=== PATIENT | male | born 1995 | race Caucasian/White ===

== ENCOUNTER 2017-10-18 15:00 | Emergency (ER) | payer OTHER ==
[~2017-10-18] VITALS: Ht 198.1 cm; Wt 127.0 kg
[~2017-10-18 15:00] MED LIST: ALBU90OI INH; ALEVE; CEPH500 PO; CIPRSO OD; CODACE30 PO; CODGUAEL PO; Cipro500 MG PO; DOXY100 PO; FLORIDE; Flomax0.4 MG PO; GUAI200 PO; IBUP600 PO; NAPR375 PO; Norco 5-325 Ta1 EACH PO; ONDA4ODT MM; PRED20 PO; Percocet 5-3251 EACH PO; Prednisone20 MG PO; RXCODGUASY PO; Triamcinolone A15 GM TOP
[2017-10-18] MEDS ORDERED: Naprosyn500 MG PO (15:41)
[2017-10-18] MEDS ORDERED: Amoxicillin500 MG PO (15:41)
[2017-10-18] MEDS ORDERED: NYST237S MT (15:41)
== END 2017-10-18 15:45 | disposition home or self-care (01) ==
LOC: ER 15:00
DX: K02.9 Dental caries, unspecified (principal); K03.81 Cracked tooth; Z79.1 Long term (current) use of non-steroidal anti-inflammatories (NSAID); Z79.2 Long term (current) use of antibiotics
CPT/HCPCS: 99283

== ENCOUNTER 2017-11-12 17:51 | Emergency (ER) | payer OTHER ==
[~2017-11-12] VITALS: Ht 198.1 cm; Wt 263.1 kg
[~2017-11-12 17:51] MED LIST changes: +Amoxicillin500 MG PO; +NYST237S MT; +Naprosyn500 MG PO
[2017-11-12] MEDS ORDERED: Amoxicillin500 MG PO (18:17)
== END 2017-11-12 18:22 | disposition home or self-care (01) ==
LOC: ER 17:51
DX: K08.89 Other specified disorders of teeth and supporting structures (principal); K03.81 Cracked tooth
CPT/HCPCS: 99282

== ENCOUNTER → 2018-08-16 | Outpatient (CLI) | payer OTHER ==
[~2018-08-16] MED LIST changes: +Pepcid40 MG PO; +Zofran8 MG PO
[2018-08-16 19:52] LABS: BASOPHILS ABSOLUTE AUTO 0.05 K/mm3 (0.00-0.23); BASOPHILS PERCENT AUTO 1 % (0-2); EOSINOPHILS PERCENT AUTO 1 % (0-6); Hematocrit 42.3 % (37.0-53.0); Hemoglobin 14.1 g/dL (13.5-17.5); IMMATURE GRAN ABSOLUTE AUTO 0.03 K/mm3 (0.00-0.10); IMMATURE GRAN PERCENT AUTO 0 % (0-1); LYMPHOCYTES ABSOLUTE AUTO 1.91 K/mm3 (0.84-5.20); LYMPHOCYTES PERCENT AUTO 20 % (21-46); MONOCYTES ABSOLUTE AUTO 0.55 K/mm3 (0.16-1.47); MONOCYTES PERCENT AUTO 6 % (4-13); Mean Corpuscular HGB 29.4 pg (26.0-34.0); Mean Corpuscular HGB Conc 33.3 g/dL (31.5-36.5); Mean Corpuscular Volume 88 fL (80-100); Mean Platelet Volume 10.4 fL (9.1-12.4); NEUTROPHILS ABSOLUTE AUTO 7.01 K/mm3 (1.96-9.15); NEUTROPHILS PERCENT AUTO 73 % (41-73); Platelet Count 274 K/mm3 (150-400); RDW Coefficient Variation 12.1 % (11.7-14.2); RDW Standard Deviation 39.4 fL (35.1-46.3); Red Blood Cell Count 4.79 M/mm3 (4.30-5.90); White Blood Cell Count 9.65 K/mm3 (4.00-11.30)
[2018-08-16 20:07] LABS: Alanine Aminotransfer (ALT/SGP 70 U/L (12-78); Albumin, Blood 4.2 g/dL (3.4-5.0); Albumin/Globulin Ratio 1.1 (0.8-1.8); Alk Phos 83 U/L (50-136); Anion Gap 5 mmol/L (6-16); Aspartate Aminotrans (AST/SGOT 24 U/L (12-37); Bilirubin, Total 0.4 mg/dL (0.1-1.0); Blood Urea Nitrogen 9 mg/dL (8-24); Bun/Creatinine Ratio 12.8 (12.0-20.0); CO2, Blood 27 mmol/L (21-32); Calcium, Blood 8.7 mg/dL (8.5-10.1); Chloride, Blood 107 mmol/L (98-108); Globulin, Blood 3.8 g/dL (2.2-4.0); Glomerular Filtration Rate >60 (60-); Glucose, Blood 83 mg/dL (70-99); Potassium, Blood 3.9 mmol/L (3.5-5.5); Sodium, Blood 139 mmol/L (136-145)
== END | disposition home or self-care (01) ==
LOC: LAB 19:38 → LAB SHORT 19:38
PROVIDERS: Physician Assistant
DX: R10.9 Unspecified abdominal pain (principal); R11.0 Nausea
CPT/HCPCS: 80053; 83690; 85025

== ENCOUNTER 2019-04-10 21:46 | Emergency (ER) | payer OTHER ==
[~2019-04-10] VITALS: Ht 198.1 cm; Wt 127.0 kg
[2019-04-10] MEDS ORDERED: Prednisone20 MG PO (22:30)
== END 2019-04-10 22:38 | disposition home or self-care (01) ==
LOC: ER 21:46
DX: L23.7 Allergic contact dermatitis due to plants, except food (principal)
CPT/HCPCS: 96372; 99282-25; J3301; Q0163

== ENCOUNTER 2020-07-15 20:03 | Emergency (ER) | payer OTHER ==
[~2020-07-15] VITALS: Ht 198.1 cm; Wt 136.1 kg
[2020-07-15] MEDS ORDERED: PRED20 PO (20:58)
== END 2020-07-15 21:06 | disposition home or self-care (01) ==
LOC: ER 20:03
DX: L23.7 Allergic contact dermatitis due to plants, except food (principal)
CPT/HCPCS: 99282; J7512

== ENCOUNTER 2020-12-21 12:40 | Emergency (ER) | payer OTHER ==
[~2020-12-21] VITALS: Ht 198.1 cm; Wt 136.1 kg
[2020-12-21] MEDS ORDERED: METPRE4DP PO (13:01)
[2020-12-21] MEDS ORDERED: BENADRYL25 MG PO (13:01)
== END 2020-12-21 13:18 | disposition home or self-care (01) ==
LOC: ER 12:40
DX: L23.7 Allergic contact dermatitis due to plants, except food (principal)
CPT/HCPCS: 99282

== ENCOUNTER 2021-12-16 04:51 | Emergency (ER) | payer SELFPAY ==
[~2021-12-16] VITALS: Ht 198.1 cm; Wt 127.0 kg
[~2021-12-16 04:51] MED LIST changes: +BENADRYL25 MG PO; +METPRE4DP PO
[2021-12-16] MEDS ORDERED: METPRE4DP PO (05:27)
== END 2021-12-16 05:45 | disposition home or self-care (01) ==
LOC: ER 04:51
DX: L23.7 Allergic contact dermatitis due to plants, except food (principal)
CPT/HCPCS: A9270; J7512

== ENCOUNTER 2022-02-18 21:16 | Emergency (ER) | payer SELFPAY ==
[~2022-02-18] VITALS: Ht 198.1 cm; Wt 127.0 kg
[2022-02-19] MEDS ORDERED: PRED20 PO (03:10)
[2022-02-19] MEDS ORDERED: ALBU90OI INH (03:10)
== END 2022-02-19 03:22 | disposition home or self-care (01) ==
LOC: ER 21:16
DX: R05.9 Cough, unspecified (principal); R06.02 Shortness of breath; Z79.52 Long term (current) use of systemic steroids
CPT/HCPCS: 71046; 99283-25

== ENCOUNTER 2022-10-06 17:07 | Emergency (ER) | payer OTHER ==
[~2022-10-06] VITALS: Ht 198.1 cm; Wt 142.9 kg
[~2022-10-06 17:07] MED LIST changes: +OMEP20ER PO
[2022-10-06] MEDS ORDERED: IBU800 M1 PO (19:32)
[2022-10-06] MEDS ORDERED: Amoxicillin500 MG PO (19:32)
[2022-10-06] MEDS ORDERED: ALBU90OI INH (20:02)
[2022-10-06] MEDS ORDERED: CLIN300 PO (20:02)
== END 2022-10-06 20:21 | disposition home or self-care (01) ==
LOC: ER 17:07
DX: K12.1 Other forms of stomatitis (principal); K08.89 Other specified disorders of teeth and supporting structures; Z88.0 Allergy status to penicillin; Z79.899 Other long term (current) drug therapy
CPT/HCPCS: 99282; A9270

== ENCOUNTER 2023-07-13 14:02 | Emergency (ER) | payer OTHER ==
[~2023-07-13] VITALS: Ht 198.1 cm; Wt 136.1 kg
[~2023-07-13 14:02] MED LIST changes: +CLIN300 PO; +IBU800 M1 PO
[2023-07-13 15:08] VITALS: BP 143/103
[2023-07-13 15:58] LABS: Influenza A, PCR NEGATIVE (NEGATIVE); Influenza B, PCR NEGATIVE (NEGATIVE); Resp Syncytial Virus, PCR NEGATIVE (NEGATIVE); SARS-Cov-2 (COVID-19) PCR, MMC NEGATIVE (NEGATIVE)
== END 2023-07-13 16:32 | disposition home or self-care (01) ==
LOC: ER 14:02
PROVIDERS: Physician Assistant
DX: J06.9 Acute upper respiratory infection, unspecified (principal); B97.89 Other viral agents as the cause of diseases classified elsewhere; Z11.52 Encounter for screening for COVID-19; Z88.0 Allergy status to penicillin
CPT/HCPCS: 0241U; 99283

== ENCOUNTER 2024-01-28 00:37 | Emergency (ER) | payer OTHER ==
[~2024-01-28] VITALS: Ht 198.1 cm; Wt 140.6 kg
[2024-01-28 02:00] VITALS: BP 114/77
== END 2024-01-28 02:30 | disposition home or self-care (01) ==
LOC: ER 00:37
DX: T22.211A Burn of second degree of right forearm, initial encounter (principal); T31.0 Burns involving less than 10% of body surface; X12.XXXA Contact with other hot fluids, initial encounter; Y99.0 Civilian activity done for income or pay
CPT/HCPCS: 99283

== ENCOUNTER 2024-02-17 20:37 | Emergency (ER) | payer OTHER ==
[~2024-02-17] VITALS: Ht 198.1 cm; Wt 140.6 kg
[2024-02-17 21:22] LABS: BASOPHILS ABSOLUTE AUTO 0.06 K/mm3 (0.00-0.23); BASOPHILS PERCENT AUTO 1 % (0-2); EOSINOPHILS ABSOLUTE AUTO 0.18 K/mm3 (0.00-0.68); EOSINOPHILS PERCENT AUTO 2 % (0-6); Hematocrit 41.7 % (37.0-53.0); Hemoglobin 14.1 g/dL (13.5-17.5); IMMATURE GRAN ABSOLUTE AUTO 0.03 K/mm3 (0.00-0.10); IMMATURE GRAN PERCENT AUTO 0 % (0-1); LYMPHOCYTES ABSOLUTE AUTO 2.28 K/mm3 (0.84-5.20); LYMPHOCYTES PERCENT AUTO 19 % (21-46); MONOCYTES ABSOLUTE AUTO 1.06 K/mm3 (0.16-1.47); MONOCYTES PERCENT AUTO 9 % (4-13); Mean Corpuscular HGB 29.9 pg (26.0-34.0); Mean Corpuscular HGB Conc 33.8 g/dL (31.5-36.5); Mean Corpuscular Volume 88 fL (80-100); Mean Platelet Volume 10.8 fL (9.1-12.4); NEUTROPHILS PERCENT AUTO 71 % (41-73); Platelet Count 243 K/mm3 (150-400); RDW Coefficient Variation 11.9 % (11.7-14.2); RDW Standard Deviation 38.5 fL (35.1-46.3); Red Blood Cell Count 4.72 M/mm3 (4.30-5.90); White Blood Cell Count 12.31 K/mm3 (4.00-11.30)
[2024-02-17 21:48] LABS: Albumin, Blood 3.9 g/dL (3.4-5.0); Albumin/Globulin Ratio 1.1 (0.8-1.8); Bilirubin, Total 0.4 mg/dL (0.1-1.0); Bun/Creatinine Ratio 13.6 (12.0-20.0); C-REACTIVE PROTEIN, EXT RANGE 1.87 mg/dL (0.000-0.300); Calcium, Blood 8.4 mg/dL (8.5-10.1); Creatinine, Blood 0.88 mg/dL (0.60-1.20); Globulin, Blood 3.6 g/dL (2.2-4.0); Potassium, Blood 3.6 mmol/L (3.5-5.5); Total Protein, Blood 7.5 g/dL (6.4-8.2)
[2024-02-18] MEDS ORDERED: Ketorolac Tromethamine 30mg Vial IV ONE (00:30)
[2024-02-18 01:35] LABS: BODY FLUID RBC 0.005 M/mm3 (0-0)
[2024-02-18 01:57] LABS: Body Fluid Crystals POS (NEGATIVE)
[2024-02-18 02:03] LABS: WBC Count, Synovial Fluid 45780 /mm3 (0-180)
[2024-02-18 02:04] LABS: RBC Count, Synovial Fluid 5000 /mm3 (0-0)
[2024-02-18 02:23] LABS: Lymphs, Synovial Fluid 20 % (0-15); Neutrophils, Synovial Fluid 80 % (0-24)
[2024-02-18 02:24] LABS: Appearance, Synovial Fluid Cloudy (Clear); Color, Synovial Fluid Pale Yellow (None-P Yel)
[2024-02-18] MEDS ORDERED: PredniSONE 20 MG Tab PO ONE (02:55)
[2024-02-18] MEDS ORDERED: Deltasone 10 mg10 MG PO (03:10)
[2024-02-18] MEDS ORDERED: Ibuprofen600 MG PO (03:10)
[2024-02-18 03:30] VITALS: BP 124/65
== END 2024-02-18 03:38 | disposition home or self-care (01) ==
LOC: ER 20:37
PROVIDERS: Emergency Medicine; Student in an Organized Health Care Education/Training Program
DX: M10.072 Idiopathic gout, left ankle and foot (principal)
CPT/HCPCS: 20605; 73610; 80053; 85025; 85651; 86140; 87070; 87075; 87205; 89051; 89060; 93971; 96374-59; 99284-25; J1885; J7512